=== PATIENT | male | born 1970 | race Caucasian/White ===

== ENCOUNTER 2017-11-17 11:43 | Inpatient (IN) | payer OTHER ==
[2017-11-17 12:29] VITALS: BMI 26.2
--- NOTE | 2017-11-17 13:26 | HP ---
CIWA Score - CIWA Score Nausea/Vomitin-Mild Nausea/No Vomiting Muscle Tremors: 4-Moderate,w/Arms Extend Anxiety: 4-Mod. Anxious/Guarded Agitation: 4-Moderately Restless Paroxysmal Sweats: 2 Orientation: 0-Oriented Tacttile Disturbances: 0-None Auditory Disturbances: 0-None Visual Disturbances: 0-None Headache: 1-Very Mild CIWA-Ar Total Score: 16 Admission ROS BHS - HPI Chief Complaint: ALCOHOL WITHDRAWAL SX Allergies/Adverse Reactions: Allergies Allergy/AdvReac Type Severity Reaction Status Date / Time No Known Allergies Allergy Verified 11/17/17 13:30 History of Present Illness: 47 YEARS OLD MALE WITH LONG HISTORY OF ALCOHOL NICOTINE DEPENDENCE METHADONE MAINTENANCE PROGRAM 90 MG HAS DEPRESSION ANXIETY IS ADMITTED TO DETOX Exam Limitations: No Limitations - Ebola screening Have you traveled outside of the country in the last 21 days: No Have you had contact with anyone from an Ebola affected area: No Have you been sick,other than usual withdrawal symptoms: No Do you have a fever: No - Review of Systems Constitutional: Loss of Appetite, Changes in sleep, Unintentional Wgt. Loss, Unexplained wgt Loss EENT: reports: Blurred Vision (CAN NOT FIND HIS EYE GLASSES) Respiratory: reports: No Symptoms reported Cardiac: reports: No Symptoms Reported GI: reports: Nausea, Poor Appetite, Poor Fluid Intake, Indigestion, Abdominal cramping : reports: No Symptoms Reported Musculoskeletal: reports: Joint Pain (LEGS), Muscle Pain (LEGS) Integumentary: reports: Rash (PERIORAL) Neuro: reports: Seizure (2007 UNKNOWN ORIGIN), Tremors Endocrine: reports: No Symptoms Reported Hematology: reports: No Symptoms Reported Psychiatric: reports: Judgement Intact, Orientated x3, Anxious, Depressed Other Systems: Reviewed and Negative Patient History - Patient Medical History Hx Anemia: No Hx Asthma: No Hx Chronic Obstructive Pulmonary Disease (COPD): No Hx Cancer: No Hx Cardiac Disorders: No Hx Congestive Heart Failure: No Hx Hypertension: No Hx Hypercholesterolemia: No Hx Pacemaker: No HX Cerebrovascular Accident: No Hx Seizures: Yes (2008) Hx Dementia: No Hx Diabetes: No Hx Gastrointestinal Disorders: Yes Hx Liver Disease: No Hx Genitourinary Disorders: No Hx Sexually Transmitted Disorders: No Hx Renal Disease (ESRD): No Hx Thyroid Disease: No Hx Human Immunodeficiency Virus (HIV): No Hx Hepatitis C: No Hx Depression: Yes Hx Suicide Attempt: No Hx Bipolar Disorder: No Hx Schizophrenia: No - Patient Surgical History Past Surgical History: No - PPD History Previous Implant?: Yes Documented Results: Negative w/proof Implanted On Prior [facility] Admission?: Yes Date: 10/03/17 PPD to be Administered?: No - Smoking Cessation Smoking history: Current every day smoker Have you smoked in the past 12 months: Yes Aproximately how many cigarettes per day: 6 Cigars Per Day: 0 Hx Chewing Tobacco Use: No Initiated information on smoking cessation: Yes 'Breaking Loose' booklet given: 11/17/17 - Substance & Tx. History Hx Alcohol Use: Yes Hx Substance Use: Yes Substance Use Type: Alcohol, Heroin Hx Substance Use Treatment: Yes Family Disease History - Family Disease History Family Disease History: [place]: Father (DECRASED), Mother (), Other: Father , Mother Other Family History: ADOPTED CHILD Admission Physical Exam BHS - Vital Signs Vital Signs: Vital Signs - 24 hr 11/17/17 12:27 Temperature 99.1 F Pulse Rate 69 Respiratory 17 Rate Blood Pressure 142/91 - Physical General Appearance: Yes: Appropriately Dressed, Mild Distress, Alcohol on Breath , Thin, Tremorous, Irritable, Sweating, Anxious HEENTM: Yes: Hearing grossly Normal, Normocephalic, Normal Voice Respiratory: Yes: Chest Non-Tender, Lungs Clear, Normal Breath Sounds, No Respiratory Distress, No Accessory Muscle Use Neck: Yes: Supple, Trachea in good position Breast: Yes: Breasts Symetrical, No Discharge Cardiology: Yes: Regular Rhythm, S1, S2, Bradycardia Abdominal: Yes: Normal Bowel Sounds, Non Tender, Flat Genitourinary: Yes: Within Normal Limits Back: Yes: Normal Inspection Musculoskeletal: Yes: full range of Motion, Gait Steady Extremities: Yes: Normal Inspection, Normal Range of Motion, Non-Tender, Tremors Neurological: Yes: Fully Oriented, Alert, Motor Strength 5/5, Normal Response, Depressed Affect Integumentary: Yes: Warm, Rash (PERIORBITAL) Lymphatic: Yes: Within Normal Limits - Diagnostic (1) Alcohol dependence with uncomplicated withdrawal Current Visit: Yes Status: Acute (2) Nicotine dependence Current Visit: Yes Status: Acute Qualifiers: Nicotine product type: cigarettes Substance use status: in withdrawal Qualified Code(s): F17.213 - Nicotine dependence, cigarettes, with withdrawal (3) Weight loss Current Visit: Yes Status: Acute (4) Heat rash Current Visit: Yes Status: Acute (5) Muscle spasm Current Visit: Yes Status: Acute (6) Depression (emotion) Current Visit: Yes Status: Suspected Qualifiers: Depression Type: dysthymia Qualified Code(s): F34.1 - Dysthymic disorder (7) Panic anxiety syndrome Current Visit: Yes Status: Suspected Cleared for Admission [facility] - Detox or Rehab [facility] Level of Care: Medically Managed Detox Regimen/Protocol: Librium [facility] Breath Alcohol Content Breath Alcohol Content: 0.042 Urine Drug Screen - Control Is Test Valid: Yes - Results Drug Screen Negative: No Urine Drug Screen Results: MTD-Methadone
[2017-11-17] MEDS ORDERED: NICOTINE POLACRILEX 2 MG GUM BUC PRN (13:33)
[2017-11-17] MEDS ORDERED: MAGNESIUM CITRATE 300 ML BOTTLE PO PRN (13:33)
[2017-11-17] MEDS ORDERED: LOPERAMIDE HCL 2 MG CAPSULE PO PRN (13:33)
[2017-11-17] MEDS ORDERED: hydrOXYzine PAMOATE 50 MG CAPSULE (FP) PO PRN (13:33)
[2017-11-17] MEDS ORDERED: P-EPHED 60MG/TRIPROLIDI 2.5MG TABLET PO PRN (13:33)
[2017-11-17] MEDS ORDERED: ACETAMINOPHEN 325 MG TABLET (FP) PO PRN (13:33)
[2017-11-17] MEDS ORDERED: MAG HYDROX/AL HYDROX/SIMETH 30 ML UNIT-DOSE CUP PO PRN (13:33)
[2017-11-17] MEDS ORDERED: MAGNESIUM HYDROX 2400MG/30ML ORAL SUSPENSION 30 ML CUP PO PRN (13:33)
[2017-11-17] MEDS ORDERED: guaiFENesin/D-METHORPHAN HB 10 ML UNIT-DOSE CUPS PO PRN (13:33)
[2017-11-17] MEDS ORDERED: MENTHOL/PHENOL 1 EACH UD MM PRN (13:33)
[2017-11-17] MEDS: RANITIDINE HCL 150 MG TABLET (FP) PO SCH ×2 (17:10→22:21)
[2017-11-17] MEDS: chlordiazePOXIDE HCL 25 MG CAPSULE PO SCH ×2 (17:10→22:21)
[2017-11-17] MEDS: HYDROCORTISONE 1% TOPICAL CREAM 30 GM TUBE TP SCH ×3 (17:10→22:21)
[2017-11-17] MEDS: BACLOFEN 10 MG TABLET (FP) PO SCH ×2 (17:10→22:21)
[2017-11-17] MEDS: NICOTINE 14 MG/24 HOURS TOPICAL PATCH TD SCH (17:10)
[2017-11-17 19:55] LABS: URINE APPEARANCE CLEAR; URINE BILIRUBIN NEGATIVE (<2.0 mg/dL); URINE COLOR AMBER; URINE GLUCOSE (UA) NEGATIVE (NEGATIVE); URINE KETONE NEGATIVE (NEGATIVE); URINE LEUK ESTERASE NEGATIVE (NEGATIVE); URINE NITRITE NEGATIVE (NEGATIVE); URINE PROTEIN NEGATIVE (NEGATIVE); URINE UROBILINOGEN 4.0 E.U/dl mg/dL (0.2-1.0)
[2017-11-17] MEDS ORDERED: MELATONIN 5 MG TABLETS PO PRN (22:00)
[2017-11-17] MEDS: THIAMINE HCL 100 MG TABLET (FP) PO SCH (22:21)
[2017-11-18] MEDS: BACLOFEN 10 MG TABLET (FP) PO SCH ×3 (05:59→22:10)
[2017-11-18] MEDS: chlordiazePOXIDE HCL 25 MG CAPSULE PO SCH ×4 (06:00→22:11)
[2017-11-18] MEDS ORDERED: METHADONE HCL 10 MG TABLET PO ONE (09:16)
[2017-11-18] MEDS ORDERED: METHADONE 80 MG, METHADONE 10 MG PO ONE (09:30)
[2017-11-18] MEDS ORDERED: METHADONE HCL 10 MG TABLET ONE (10:20)
[2017-11-18] MEDS ORDERED: METHADONE HCL 40 MG DISPERSABLE TABLET ONE (10:21)
[2017-11-18] MEDS: RANITIDINE HCL 150 MG TABLET (FP) PO SCH ×2 (10:29→22:11)
[2017-11-18] MEDS: PRENATAL VITAMINS W/ FOLIC ACID TABLET (FP) PO SCH (10:30)
[2017-11-18] MEDS: NICOTINE 14 MG/24 HOURS TOPICAL PATCH TD SCH (10:30)
[2017-11-18] MEDS: HYDROCORTISONE 1% TOPICAL CREAM 30 GM TUBE TP SCH ×4 (10:30→22:13)
[2017-11-18 10:32] LABS: HEMOGLOBIN 13.8 GM/dL (11.7-16.9); MCH 29.6 pg (25.7-33.7); MCHC 32.2 g/dl (32.0-35.9); MEAN PLT VOLUME 10.5 fl (7.5-11.1); PLATELET COUNT 210 K/MM3 (134-434); RBC 4.68 M/mm3 (4.00-5.60); RDW 17.3 % (11.9-15.9); WHITE BLOOD COUNT 6.4 K/mm3 (4.0-10.0)
[2017-11-18 10:42] LABS: CHLORIDE 103 mmol/L (98-107); POTASSIUM 3.6 mmol/L (3.5-5.1); SODIUM 141 mmol/L (136-145)
[2017-11-18 11:11] LABS: ALBUMIN 3.6 g/dl (3.4-5.0); ALK PHOS 279 U/L (45-117); ANION GAP 11 (8-16); BILIRUBIN,TOTAL 1.1 mg/dL (0.2-1.0); BLOOD UREA NITROGEN 9 mg/dL (7-18); CALCIUM 8.6 mg/dL (8.5-10.1); CO2 27 mmol/L (21-32); CREATININE 0.7 mg/dL (0.7-1.3); GLUCOSE,RANDOM 128 mg/dL (74-106); SGOT/AST 275 U/L (15-37); TOT PROT 7.2 g/dl (6.4-8.2)
--- NOTE | 2017-11-18 11:18 | PN ---
[facility] CIWA - CIWA Score Nausea/Vomitin-No Nausea/No Vomiting Muscle Tremors: 4-Moderate,w/Arms Extend Anxiety: 4-Mod. Anxious/Guarded Agitation: 4-Moderately Restless Paroxysmal Sweats: 3 Orientation: 0-Oriented Tacttile Disturbances: 0-None Auditory Disturbances: 0-None Visual Disturbances: 0-None Headache: 0-None Present CIWA-Ar Total Score: 15 BHS Progress Note (SOAP) Subjective: C/O TREMORS,SWEATS,RESTLESSNESS,FATIGUE,INTERMITTENT SLEEP. HX PANIC ATTACK- REQUESTS TO SEE PSYCH TODAY. Objective: 11/18/17 11:18 Vital Signs 11/18/17 11/18/17 06:15 09:56 Temperature 97.4 F L 98.6 F Pulse Rate 62 69 Respiratory 18 20 Rate Blood Pressure 128/78 123/76 Laboratory Tests 11/17/17 11/18/17 11/18/17 17:13 06:00 06:00 WBC 6.4 RBC 4.68 Hgb 13.8 Hct 43.0 MCV 92.0 MCH 29.6 MCHC 32.2 RDW 17.3 H Plt Count 210 MPV 10.5 Sodium 141 Potassium 3.6 Chloride 103 Urine Color Kristal Urine Appearance Clear Urine pH 5.0 Ur Specific [place] 1.018 Urine Protein Negative Urine Glucose (UA) Negative Urine Ketones Negative Urine Blood Negative Urine Nitrite Negative Urine Bilirubin Negative Urine Urobilinogen 4.0 e.u/dl Ur Leukocyte Esterase Negative Assessment: 11/18/17 11:18 WITHDRAWAL SX Plan: CONTINUE DETOX INCREASE PO FLUIDS FOLLOW UP WITH PSYCH CONSULT TODAY
[2017-11-18 11:19] LABS: SGPT/ALT 547 U/L (12-78)
--- NOTE | 2017-11-18 13:16 | EKG ---
Test Reason : Blood Pressure : / mmHG Vent. Rate : 080 BPM Atrial Rate : 080 BPM P-R Int : 118 ms QRS Dur : 104 ms QT Int : 418 ms P-R-T Axes : -13 061 053 degrees QTc Int : 482 ms NORMAL SINUS RHYTHM MINIMAL VOLTAGE CRITERIA FOR LVH, MAY BE NORMAL VARIANT PROLONGED QT ABNORMAL ECG NO PREVIOUS ECGS AVAILABLE Confirmed by MD MARQUES, ANTHONY ([id number]) on 11/18/2017 1:16:41 PM Referred By: Confirmed By:ANTHONY MOHAN MD
--- NOTE | 2017-11-18 17:22 | CONSULT ---
[facility] Psychiatric Consult - Data Date of interview: 11/18/17 Admission source: [facility] Identifying data: First admission to [facility] for this 47 y/o male seeking detox treatment on for opioid and alcohol dependence.Patient is ,a father of one,homeless,unemployed and supported by relatives. Substance Abuse History: Confirmed by relatives.Smoking history: Current every day smoker. Have you smoked in the past 12 months: Yes. Aproximately how many cigarettes per day: 6. Cigars Per Day: 0. Hx Chewing Tobacco Use: No. Initiated information on smoking cessation: Yes. 'Breaking Loose' booklet given : 11/17/17. - Substance & Tx. History. Hx Alcohol Use: Yes. Hx Substance Use : Yes. Substance Use Type: Alcohol, Heroin. Hx Substance Use Treatment: Yes Medical History: GERD and a history of withdrawal-related seizures. Psychiatric History: No reported history of psychiatric hospitalizations.Patient declares that he was diagnosed in the past with MDD and managed successfully with wellbutrin.Ejected from [facility] in August 2017 after 15 months of treatment (violation of unit regulations as per self-report) .Currently on methadone maintenance (90 mg/day) at the [facility] program in [facility].Patient denies history of suicide attempts. Physical/Sexual Abuse/Trauma History: Patient denies. Additional Comment: Urine Drug Screen Results: MTD-Methadone.Noted. Mental Status Exam - Mental Status Exam Alert and Oriented to: Time, Place, Person Cognitive Function: Good Patient Appearance: Well Groomed Mood: Nervous, Anxious Affect: Mood Congruent Patient Behavior: Appropriate, Cooperative Speech Pattern: Clear, Appropriate Voice Loudness: Normal Thought Process: Intact, Goal Oriented Thought Disorder: Not Present Hallucinations: Denies Suicidal Ideation: Denies Homicidal Ideation: Denies Insight/Judgement: Fair Sleep: Poorly, Difficulty falling asleep Appetite: Good Muscle strength/Tone: Normal Gait/Station: Normal Psychiatric Findings - Problem List ([place] 1, 2,3) (1) Opioid dependence on agonist therapy Current Visit: Yes Status: Acute (2) Alcohol dependence with uncomplicated withdrawal Current Visit: Yes Status: Acute (3) Nicotine dependence Current Visit: Yes Status: Acute Qualifiers: Nicotine product type: cigarettes Substance use status: in withdrawal Qualified Code(s): F17.213 - Nicotine dependence, cigarettes, with withdrawal (4) Substance induced mood disorder Current Visit: Yes Status: Acute (5) Mood disorder Current Visit: Yes Status: Chronic (6) Non compliance w medication regimen Current Visit: Yes Status: Acute (7) Insomnia Current Visit: Yes Status: Acute - Initial Treatment Plan Initial Treatment Plan: Psychoeducation.Sleep hygiene discussed.Patient declines hypnotic medications but favors the inclusion of wellbutrin in the medication regimen." I did so well on that medication when I was at [facility] ." Wellbutrin XL 150 mg po daily.Patient is made aware of the risk of seizures.Consent (verbal) given.Observation.
[2017-11-18] MEDS: THIAMINE HCL 100 MG TABLET (FP) PO SCH (22:12)
[2017-11-19] MEDS ORDERED: METHADONE HCL 10 MG TABLET ONE (05:09)
[2017-11-19] MEDS ORDERED: METHADONE HCL 40 MG DISPERSABLE TABLET ONE (05:10)
[2017-11-19] MEDS: chlordiazePOXIDE HCL 25 MG CAPSULE PO SCH ×2 (05:55→10:24)
[2017-11-19] MEDS ORDERED: METHADONE HCL 10 MG TABLET PO SCH (06:00)
[2017-11-19] MEDS: METHADONE 80 MG, METHADONE 10 MG PO SCH (06:14)
[2017-11-19] MEDS: BACLOFEN 10 MG TABLET (FP) PO SCH ×3 (06:22→22:25)
[2017-11-19] MEDS: chlordiazePOXIDE HCL 25 MG CAPSULE PO PRN ×2 (06:29→19:38)
[2017-11-19] MEDS: HYDROCORTISONE 1% TOPICAL CREAM 30 GM TUBE TP SCH ×4 (10:24→23:48)
[2017-11-19] MEDS: RANITIDINE HCL 150 MG TABLET (FP) PO SCH ×2 (10:24→22:25)
[2017-11-19] MEDS: PRENATAL VITAMINS W/ FOLIC ACID TABLET (FP) PO SCH (10:24)
[2017-11-19] MEDS: NICOTINE 14 MG/24 HOURS TOPICAL PATCH TD SCH (10:25)
[2017-11-19] MEDS: chlordiazePOXIDE 5 MG CAPSULE PO SCH ×2 (17:30→22:26)
--- NOTE | 2017-11-19 18:32 | PN ---
S CIWA - CIWA Score Nausea/Vomitin-No Nausea/No Vomiting Muscle Tremors: 3 Anxiety: 4-Mod. Anxious/Guarded Agitation: 3 Paroxysmal Sweats: 2 Orientation: 2-Disoriented Date<2 days Tacttile Disturbances: 0-None Auditory Disturbances: 0-None Visual Disturbances: 0-None Headache: 3-Moderate CIWA-Ar Total Score: 17 BHS Progress Note (SOAP) Subjective: Interrupted sleep, Body Aches, H/A, Sweating, Tremors, Nausea, Stomach Cramping. Objective: PATIENT A & O X 2 (UNCERTAIN ABOUT CURRENT DAY / DATE). PATIENT OBSERVED AMBULATING ON UNIT. NO ACUTE DISTRESS. 11/19/17 18:30 Vital Signs Temperature 98.3 F 11/19/17 13:25 Pulse Rate 81 11/19/17 13:25 Respiratory Rate 18 11/19/17 13:25 Blood Pressure 138/76 11/19/17 13:25 O2 Sat by Pulse Oximetry (%) Laboratory Tests 11/17/17 11/17/17 11/18/17 06:00 17:13 06:00 WBC 6.4 RBC 4.68 Hgb 13.8 Hct 43.0 MCV 92.0 MCH 29.6 MCHC 32.2 RDW 17.3 H Plt Count 210 MPV 10.5 Sodium Potassium Chloride Carbon Dioxide Anion Gap BUN Creatinine Creat Clearance w eGFR Random Glucose Calcium Total Bilirubin AST ALT Alkaline Phosphatase Total Protein Albumin TSH 0.75 Urine Color Kristal Urine Appearance Clear Urine pH 5.0 Ur Specific [place] 1.018 Urine Protein Negative Urine Glucose (UA) Negative Urine Ketones Negative Urine Blood Negative Urine Nitrite Negative Urine Bilirubin Negative Urine Urobilinogen 4.0 e.u/dl Ur Leukocyte Esterase Negative RPR Titer 11/18/17 11/18/17 06:00 06:00 WBC RBC Hgb Hct MCV MCH MCHC RDW Plt Count MPV Sodium 141 Potassium 3.6 Chloride 103 Carbon Dioxide 27 Anion Gap 11 BUN 9 Creatinine 0.7 Creat Clearance w eGFR > 60 Random Glucose 128 H Calcium 8.6 Total Bilirubin 1.1 H AST 275 H ALT 547 H Alkaline Phosphatase 279 H Total Protein 7.2 Albumin 3.6 TSH Urine Color Urine Appearance Urine pH Ur Specific [place] Urine Protein Urine Glucose (UA) Urine Ketones Urine Blood Urine Nitrite Urine Bilirubin Urine Urobilinogen Ur Leukocyte Esterase RPR Titer Nonreactive LABS NOTED. Assessment: 11/19/17 18:31 WITHDRAWAL SYMPTOMS. Plan: CONTINUE DETOX. HFP TOMORROW AM FOR ABNORMAL ADMISSION HEPATIC LAB VALUES. INCREASE DAILY PO FLUID INTAKE.
[2017-11-19] MEDS: THIAMINE HCL 100 MG TABLET (FP) PO SCH (22:25)
[2017-11-20] MEDS: chlordiazePOXIDE 5 MG CAPSULE PO SCH ×2 (04:30→10:49)
[2017-11-20] MEDS ORDERED: METHADONE HCL 40 MG DISPERSABLE TABLET ONE (05:15)
[2017-11-20] MEDS ORDERED: METHADONE HCL 10 MG TABLET ONE (05:15)
[2017-11-20] MEDS: BACLOFEN 10 MG TABLET (FP) PO SCH ×3 (05:46→22:33)
[2017-11-20] MEDS: METHADONE 80 MG, METHADONE 10 MG PO SCH (06:04)
[2017-11-20 10:43] LABS: ALBUMIN 3.5 g/dl (3.4-5.0)
--- NOTE | 2017-11-20 10:45 | PN ---
Psychiatric Progress Note Vital Signs: Vital Signs Period Temp Pulse Resp BP Sys/Diaz Pulse Ox Last 24 Hr 96.9 F-98.3 F 74-85 18-18 118-153/67-82 Date of Session: 11/20/17 Chief Complaint:: "I'm anxious." HPI: Patient admitted to for alcohol dependence. ROS: GERD and a history of withdrawal-related seizures Current Medications: Active Medications Generic Name Dose Route Start Last Admin Trade Name Freq PRN Reason Stop Dose Admin Acetaminophen 650 mg 11/17/17 13:33 11/20/17 04:30 Tylenol - PO 650 mg Q4H PRN Administration FEVER Al Hydroxide/Mg Hydroxide 30 ml 11/17/17 13:33 Mylanta Oral Suspension - PO Q6H PRN DYSPEPSIA Baclofen 10 mg 11/17/17 14:30 11/20/17 05:46 Lioresal - PO 10 mg TID EDMUND Administration Bupropion HCl 150 mg 11/19/17 10:00 11/19/17 10:24 Wellbutrin Xl - PO 150 mg DAILY EDMUND Administration Chlordiazepoxide HCl 15 mg 11/19/17 17:00 11/20/17 04:30 Librium - PO 11/20/17 11:01 15 mg [id number] EDMUND Administration Chlordiazepoxide HCl 25 mg 11/17/17 13:33 11/19/17 19:38 Librium - PO 11/20/17 13:32 25 mg Q4H PRN Administration WITHDRAWAL(CONT SUBST) Chlordiazepoxide HCl 10 mg 11/20/17 17:00 Librium - PO 11/21/17 11:01 [id number] EDMUND Eucalyptus/Menthol/Phenol/Sorbitol 1 each 11/17/17 13:33 Cepastat Lozenge - MM Q4H PRN SORE THROAT Guaifenesin 10 ml 11/17/17 13:33 Robitussin Dm - PO Q6H PRN COUGH Hydrocortisone 1 applic 11/17/17 14:30 11/19/17 23:48 Hytone 1% Cream - TP Not Given QID EDMUND Hydroxyzine Pamoate 50 mg 11/17/17 13:33 Vistaril - PO Q4H PRN AGITATION Loperamide HCl 4 mg 11/17/17 13:33 Imodium - PO Q6H PRN DIARRHEA Magnesium Citrate 300 ml 11/17/17 13:33 Citroma - PO Q48H PRN CONSTIPATION Magnesium Hydroxide 30 ml 11/17/17 13:33 Milk Of Magnesia - PO DAILY PRN CONSTIPATION Melatonin 5 mg 11/17/17 22:00 Melatonin PO HS PRN INSOMNIA Methadone HCl 80 mg/ Methadone 90 mg 11/19/17 06:00 11/20/17 06:04 HCl 10 mg PO 11/25/17 05:59 90 mg DAILY@0600 EDMUND Administration Nicotine 14 mg 11/17/17 14:30 11/19/17 10:25 Nicoderm Patch - TD 14 mg DAILY EDMUND Administration Nicotine Polacrilex 2 mg 11/17/17 13:33 11/19/17 08:44 Nicorette Gum - BUC 2 mg Q2H PRN Administration NICOTINE REPLACEMENT RX Multivit/Folic Acid/Iron 1 tab 11/18/17 10:00 11/19/17 10:24 Vitamins ([facility]) - PO 1 tab DAILY EDMUND Administration Pseudoephedrine/Triprolidine 1 combo 11/17/17 13:33 Actifed - PO TID PRN NASAL CONGESTION Ranitidine HCl 150 mg 11/17/17 14:30 11/19/17 22:25 Zantac - PO 150 mg BID EDMUND Administration Thiamine HCl 100 mg 11/17/17 22:00 11/19/17 22:25 Vitamin B1 - PO 100 mg HS EDMUND Administration Medication(s) Change(s): No. Current Side Effect: No Lab tests ordered: No Lab tests reviewed: Yes Provider note:: Corrugator met with patient requesting to speak to psychiatry. Pt. reports feeling anxious concerning his discharge plan. Chart reviewed. Dr. Bell note read and appreciated. Pt. diagnosed in the past with MDD and managed successfully with wellbutrin. Pt. reports being here for alcohol dependence although has a history of opiate dependence. Pt. is currently concerned about his discharge plan. Pt. was informed that the plan is for him to attend rehab at the [facility] but at the moment, his acceptance is pending. Pt. offered positive reassurance. Pt. made aware that vistaril 50mg for anxiety is ordered and to accept medication if his anxiety increases. Pt. satisified and receptive to feedback. Total face to face time:: 15 Mental Status Exam - Mental Status Exam Alert and Oriented to: Time, Place, Person Cognitive Function: Good Patient Appearance: Well Groomed Mood: Anxious Affect: Mood Congruent Patient Behavior: Appropriate, Cooperative Speech Pattern: Clear, Appropriate Voice Loudness: Normal Thought Process: Intact, Goal Oriented Thought Disorder: Not Present Hallucinations: Denies Suicidal Ideation: Denies Homicidal Ideation: Denies Insight/Judgement: Fair Sleep: Fair Appetite: Good Muscle strength/Tone: Normal Gait/Station: Normal Psychiatric Treatment Plan - Problem List (1) Alcohol dependence with uncomplicated withdrawal Current Visit: Yes (2) Insomnia Current Visit: Yes (3) Opioid dependence on agonist therapy Current Visit: Yes (4) Nicotine dependence Current Visit: Yes Qualifiers: Nicotine product type: cigarettes Substance use status: in withdrawal Qualified Code(s): F17.213 - Nicotine dependence, cigarettes, with withdrawal (5) Non compliance w medication regimen Current Visit: Yes (6) Substance induced mood disorder Current Visit: Yes (7) Mood disorder Current Visit: Yes
[2017-11-20 10:47] LABS: BILIRUBIN,DIRECT 0.4 mg/dL (0.0-0.2); BILIRUBIN,TOTAL 0.5 mg/dL (0.2-1.0); TOT PROT 7.3 g/dl (6.4-8.2)
[2017-11-20] MEDS: RANITIDINE HCL 150 MG TABLET (FP) PO SCH ×2 (10:49→22:33)
[2017-11-20] MEDS: PRENATAL VITAMINS W/ FOLIC ACID TABLET (FP) PO SCH (10:49)
[2017-11-20] MEDS: NICOTINE 14 MG/24 HOURS TOPICAL PATCH TD SCH (10:49)
[2017-11-20] MEDS: HYDROCORTISONE 1% TOPICAL CREAM 30 GM TUBE TP SCH ×4 (10:49→22:33)
--- NOTE | 2017-11-20 14:23 | PN ---
S Progress Note (SOAP) Subjective: C/O SLIGHT TREMORS, ANXIETY AND PANICS BUT REPORTS HE IS DOING MUCH BETTER. PT MET WITH COUNSELOR RE;AFTERCARE PLANS. PT TO MEET WITH PSYCH CONSULT FOR RE- EVALUATION OF HIS SX Objective: 11/20/17 14:21 Vital Signs 11/20/17 11/20/17 09:19 13:45 Temperature 97.5 F L 97.0 F L Pulse Rate 85 83 Respiratory 18 18 Rate Blood Pressure 124/74 119/73 Laboratory Tests 11/17/17 11/17/17 11/18/17 06:00 17:13 06:00 WBC 6.4 RBC 4.68 Hgb 13.8 Hct 43.0 MCV 92.0 MCH 29.6 MCHC 32.2 RDW 17.3 H Plt Count 210 MPV 10.5 Sodium Potassium Chloride Carbon Dioxide Anion Gap BUN Creatinine Creat Clearance w eGFR Random Glucose Calcium Total Bilirubin Direct Bilirubin AST ALT Alkaline Phosphatase Total Protein Albumin TSH 0.75 Urine Color Kristal Urine Appearance Clear Urine pH 5.0 Ur Specific [place] 1.018 Urine Protein Negative Urine Glucose (UA) Negative Urine Ketones Negative Urine Blood Negative Urine Nitrite Negative Urine Bilirubin Negative Urine Urobilinogen 4.0 e.u/dl Ur Leukocyte Esterase Negative RPR Titer 11/18/17 11/18/17 11/20/17 06:00 06:00 07:40 WBC RBC Hgb Hct MCV MCH MCHC RDW Plt Count MPV Sodium 141 Potassium 3.6 Chloride 103 Carbon Dioxide 27 Anion Gap 11 BUN 9 Creatinine 0.7 Creat Clearance w eGFR > 60 Random Glucose 128 H Calcium 8.6 Total Bilirubin 1.1 H 0.5 Direct Bilirubin 0.4 H AST 275 H 51 H D ALT 547 H 239 H D Alkaline Phosphatase 279 H 197 H D Total Protein 7.2 7.3 Albumin 3.6 3.5 TSH Urine Color Urine Appearance Urine pH Ur Specific [place] Urine Protein Urine Glucose (UA) Urine Ketones Urine Blood Urine Nitrite Urine Bilirubin Urine Urobilinogen Ur Leukocyte Esterase RPR Titer Nonreactive LABS NOTED. LIVER ENZYMES SLIGHTLY DOWN ASYMPTOMATIC Assessment: 11/20/17 14:23 WITHDRAWAL SX Plan: CONTINUE DETOX PT WILL FOLLOW UP WITH PMD WITH COPY OF LAB RESULT FOR MEDICAL MANAGEMENT ON DISCHARGE..
[2017-11-20] MEDS: chlordiazePOXIDE HCL 10 MG CAPSULE PO SCH ×2 (17:19→22:33)
[2017-11-20] MEDS: THIAMINE HCL 100 MG TABLET (FP) PO SCH (22:33)
[2017-11-21] MEDS ORDERED: METHADONE HCL 10 MG TABLET ONE (04:01)
[2017-11-21] MEDS ORDERED: METHADONE HCL 40 MG DISPERSABLE TABLET ONE (04:03)
[2017-11-21] MEDS: BACLOFEN 10 MG TABLET (FP) PO SCH (05:48)
[2017-11-21] MEDS: METHADONE 80 MG, METHADONE 10 MG PO SCH (05:48)
[2017-11-21] MEDS: chlordiazePOXIDE HCL 10 MG CAPSULE PO SCH ×2 (05:48→10:57)
[2017-11-21] MEDS: PRENATAL VITAMINS W/ FOLIC ACID TABLET (FP) PO SCH (10:22)
[2017-11-21] MEDS: HYDROCORTISONE 1% TOPICAL CREAM 30 GM TUBE TP SCH (10:22)
[2017-11-21] MEDS: RANITIDINE HCL 150 MG TABLET (FP) PO SCH (10:22)
[2017-11-21] MEDS: NICOTINE 14 MG/24 HOURS TOPICAL PATCH TD SCH (10:25)
[2017-11-21 11:42] LABS: ALBUMIN 3.4 g/dl (3.4-5.0); BILIRUBIN,DIRECT 0.2 mg/dL (0.0-0.2); BILIRUBIN,TOTAL 0.5 mg/dL (0.2-1.0); TOT PROT 6.7 g/dl (6.4-8.2)
--- NOTE | 2017-11-21 12:24 | PN ---
[facility] Progress Note (SOAP) Subjective: DETOX COMPLETED. ALERT O X 3. PT EAGER TO GO TO REHAB AFTERCARE. Objective: 11/21/17 12:23 Vital Signs 11/21/17 11/21/17 06:43 09:17 Temperature 96.3 F L 98.5 F Pulse Rate 76 86 Respiratory 18 18 Rate Blood Pressure 111/69 124/77 Laboratory Tests 11/17/17 11/17/17 11/18/17 06:00 17:13 06:00 WBC 6.4 RBC 4.68 Hgb 13.8 Hct 43.0 MCV 92.0 MCH 29.6 MCHC 32.2 RDW 17.3 H Plt Count 210 MPV 10.5 Sodium Potassium Chloride Carbon Dioxide Anion Gap BUN Creatinine Creat Clearance w eGFR Random Glucose Calcium Total Bilirubin Direct Bilirubin AST ALT Alkaline Phosphatase Total Protein Albumin TSH 0.75 Urine Color Kristal Urine Appearance Clear Urine pH 5.0 Ur Specific [place] 1.018 Urine Protein Negative Urine Glucose (UA) Negative Urine Ketones Negative Urine Blood Negative Urine Nitrite Negative Urine Bilirubin Negative Urine Urobilinogen 4.0 e.u/dl Ur Leukocyte Esterase Negative RPR Titer 11/18/17 11/18/17 11/20/17 06:00 06:00 07:40 WBC RBC Hgb Hct MCV MCH MCHC RDW Plt Count MPV Sodium 141 Potassium 3.6 Chloride 103 Carbon Dioxide 27 Anion Gap 11 BUN 9 Creatinine 0.7 Creat Clearance w eGFR > 60 Random Glucose 128 H Calcium 8.6 Total Bilirubin 1.1 H 0.5 Direct Bilirubin 0.4 H AST 275 H 51 H D ALT 547 H 239 H D Alkaline Phosphatase 279 H 197 H D Total Protein 7.2 7.3 Albumin 3.6 3.5 TSH Urine Color Urine Appearance Urine pH Ur Specific [place] Urine Protein Urine Glucose (UA) Urine Ketones Urine Blood Urine Nitrite Urine Bilirubin Urine Urobilinogen Ur Leukocyte Esterase RPR Titer Nonreactive 11/21/17 07:40 WBC RBC Hgb Hct MCV MCH MCHC RDW Plt Count MPV Sodium Potassium Chloride Carbon Dioxide Anion Gap BUN Creatinine Creat Clearance w eGFR Random Glucose Calcium Total Bilirubin 0.5 Direct Bilirubin 0.2 D AST 33 D ALT 164 H D Alkaline Phosphatase 168 H D Total Protein 6.7 Albumin 3.4 TSH Urine Color Urine Appearance Urine pH Ur Specific [place] Urine Protein Urine Glucose (UA) Urine Ketones Urine Blood Urine Nitrite Urine Bilirubin Urine Urobilinogen Ur Leukocyte Esterase RPR Titer LIVER ENZYMES MUCH IMPROVED Assessment: 11/21/17 12:23 MEDICALLY STABLE Plan: D/C PT TODAY FOLLOW UP WITH AFTERCARE PLANNED.
--- NOTE | 2017-11-21 12:27 | DS ---
[facility] Detox Discharge Summary Admission Date: 11/17/17 Discharge Date: 11/21/17 - History Present History: Alcohol Dependence Additional Comments: DETOX COMPLETED. ALERT O X 3. NAD.PT REORTS HE HAS NO PMD BUT USES [facility] ER NEEDED. Pertinent Past History: PLEASE SEE DX BELOW - Physical Exam Results Vital Signs: Vital Signs Temperature 98.5 F 11/21/17 09:17 Pulse Rate 86 11/21/17 09:17 Respiratory Rate 18 11/21/17 09:17 Blood Pressure 124/77 11/21/17 09:17 O2 Sat by Pulse Oximetry (%) Pertinent Admission Physical Exam Findings: WITHDRAWAL SX Laboratory Tests 11/17/17 11/17/17 11/18/17 06:00 17:13 06:00 WBC 6.4 RBC 4.68 Hgb 13.8 Hct 43.0 MCV 92.0 MCH 29.6 MCHC 32.2 RDW 17.3 H Plt Count 210 MPV 10.5 Sodium Potassium Chloride Carbon Dioxide Anion Gap BUN Creatinine Creat Clearance w eGFR Random Glucose Calcium Total Bilirubin Direct Bilirubin AST ALT Alkaline Phosphatase Total Protein Albumin TSH 0.75 Urine Color Kristal Urine Appearance Clear Urine pH 5.0 Ur Specific [place] 1.018 Urine Protein Negative Urine Glucose (UA) Negative Urine Ketones Negative Urine Blood Negative Urine Nitrite Negative Urine Bilirubin Negative Urine Urobilinogen 4.0 e.u/dl Ur Leukocyte Esterase Negative RPR Titer 11/18/17 11/18/17 11/20/17 06:00 06:00 07:40 WBC RBC Hgb Hct MCV MCH MCHC RDW Plt Count MPV Sodium 141 Potassium 3.6 Chloride 103 Carbon Dioxide 27 Anion Gap 11 BUN 9 Creatinine 0.7 Creat Clearance w eGFR > 60 Random Glucose 128 H Calcium 8.6 Total Bilirubin 1.1 H 0.5 Direct Bilirubin 0.4 H AST 275 H 51 H D ALT 547 H 239 H D Alkaline Phosphatase 279 H 197 H D Total Protein 7.2 7.3 Albumin 3.6 3.5 TSH Urine Color Urine Appearance Urine pH Ur Specific [place] Urine Protein Urine Glucose (UA) Urine Ketones Urine Blood Urine Nitrite Urine Bilirubin Urine Urobilinogen Ur Leukocyte Esterase RPR Titer Nonreactive 11/21/17 07:40 WBC RBC Hgb Hct MCV MCH MCHC RDW Plt Count MPV Sodium Potassium Chloride Carbon Dioxide Anion Gap BUN Creatinine Creat Clearance w eGFR Random Glucose Calcium Total Bilirubin 0.5 Direct Bilirubin 0.2 D AST 33 D ALT 164 H D Alkaline Phosphatase 168 H D Total Protein 6.7 Albumin 3.4 TSH Urine Color Urine Appearance Urine pH Ur Specific [place] Urine Protein Urine Glucose (UA) Urine Ketones Urine Blood Urine Nitrite Urine Bilirubin Urine Urobilinogen Ur Leukocyte Esterase RPR Titer LIVER ENZYMES MUCH IMPROVED. - Treatment Hospital Course: Detox Protocol Followed, Detoxed Safely, Responded well, Discharged Condition Good, Rehab Referral Accepted Patient has Accepted a Rehab Referral to: [facility] - Medication Discharge Medications: Ambulatory Orders Methadone [Dolophine -] 90 mg PO DAILY 11/17/17 - Diagnosis (1) Alcohol dependence with uncomplicated withdrawal Current Visit: Yes Status: Acute (2) Nicotine dependence Current Visit: Yes Status: Acute Qualifiers: Nicotine product type: cigarettes Substance use status: in withdrawal Qualified Code(s): F17.213 - Nicotine dependence, cigarettes, with withdrawal (3) Weight loss Current Visit: Yes Status: Acute (4) Panic anxiety syndrome Current Visit: Yes Status: Suspected (5) Heat rash Current Visit: Yes Status: Acute (6) GERD (gastroesophageal reflux disease) Current Visit: Yes Status: Acute Qualifiers: Esophagitis presence: esophagitis presence not specified Qualified Code(s) : K21.9 - Gastro-esophageal reflux disease without esophagitis (7) Elevated liver enzymes Current Visit: Yes Status: Acute - AMA Did Patient Leave Against Medical Advice: No
[2017-11-21 12:53] VITALS: BP 128/77; PULSE 89; TEMP 98.1
== END 2017-11-21 12:53 | disposition other institution (70) | DRG 775 ==
LOC: YASAS 11:43 → Y3N 14:14
PROVIDERS: ADMIT Surgery; ATTEND Surgery
PROC: HZ2ZZZZ Detoxification Services for Substance Abuse Treatment (ICD-10-PCS; principal; 2017-11-17)
DX: F10.230 Alcohol dependence with withdrawal, uncomplicated (principal); F17.210 Nicotine dependence, cigarettes, uncomplicated; F19.24 Other psychoactive substance dependence with psychoactive substance-induced mood disorder; F41.0 Panic disorder [episodic paroxysmal anxiety]; F34.1 Dysthymic disorder; F31.9 Bipolar disorder, unspecified; G47.00 Insomnia, unspecified; L74.8 Other eccrine sweat disorders; R74.8 Abnormal levels of other serum enzymes; R63.4 Abnormal weight loss; Z68.26 Body mass index [BMI] 26.0-26.9, adult; M62.838 Other muscle spasm; Z91.14 Patient's other noncompliance with medication regimen; Z59.0 Homelessness
CPT/HCPCS: 36415; 80053; 80076; 81003; 84443; 85027; 86593; 93005; 93010; J0475

== ENCOUNTER 2017-11-21 12:58 | Inpatient (IN) | payer OTHER ==
[2017-11-21] MEDS ORDERED: P-EPHED 60MG/TRIPROLIDI 2.5MG TABLET PO PRN (13:29)
[2017-11-21] MEDS ORDERED: MAGNESIUM CITRATE 300 ML BOTTLE PO PRN (13:29)
[2017-11-21] MEDS ORDERED: MENTHOL/PHENOL 1 EACH UD MM PRN (13:29)
[2017-11-21] MEDS ORDERED: guaiFENesin/D-METHORPHAN HB 10 ML UNIT-DOSE CUPS PO PRN (13:29)
[2017-11-21] MEDS ORDERED: MAGNESIUM HYDROX 2400MG/30ML ORAL SUSPENSION 30 ML CUP PO PRN (13:29)
[2017-11-21] MEDS ORDERED: IBUPROFEN 400 MG TABLET (FP) PO PRN (13:29)
[2017-11-21] MEDS ORDERED: LOPERAMIDE HCL 2 MG CAPSULE PO PRN (13:29)
--- NOTE | 2017-11-21 13:38 | HP ---
[facility] Rehab Assess/Revision - Admission History Admitted to Rehab from: [facility] Date of Admission to Rehab: 11/21/17 - Vital signs Vital Signs: Vital Signs Period Temp Pulse Resp BP Sys/Diaz Pulse Ox Last 24 Hr 98.1 F 83 18 117/68 - Findings Detox History & Physical reviewed: Yes Concur with findings: Yes Comments/Additional Findings: ADMIT TO REHAB FOR AFTERCARE Inpatient Rehab Admission - Initial Determination Are CD services needed?: Yes Free of communicable disease: Yes Not in need of hospitalization: Yes - Rehab Admission Criteria Patient is meeting Inpatient Rehab admission criteria:: Yes
[2017-11-21] MEDS: NICOTINE 14 MG/24 HOURS TOPICAL PATCH TD SCH (14:16)
--- NOTE | 2017-11-21 14:18 | HP ---
Psychiatrist Admission - Data Date of interview: 11/21/17 Admission source: [facility] Identifying data: Patient is a 47 year old male, , father of one, unemployed (denies receiving financial assistance), and currently homeless. This is patient's first admission to rehab at [facility]. Medical History: GERD and a history of withdrawal-related seizures. Psychiatric History: Patient denies h/o psychiatric hospitalizations. States he was diagnosed with MDD in 2005 while in a rehab in [place], [place]. Pt. was then started on a trial of wellbutrin followed by lexapro. Patient remained on wellbutrin and continues to accept medication today.Pt. reports [employer] in 2016 but due to length of commute patient discontined his outpatient psychiatric care. Pt. reports receiving refills from his PCP, detox/rehab facilities. Pt. was recently in the [facility] program [facility]" but was ejected from program for violation of unit regulation. Patient is currently on methadone maintenance (90 mg/day) at the [facility] program in [facility]. Pt. denies h/o suicide attempt. Physical/Sexual Abuse/Trauma History: Denies. Vital Signs: Vital Signs - 24 hr 11/21/17 13:05 Temperature 98.1 F Pulse Rate 83 Respiratory 18 Rate Blood Pressure 117/68 Allergies/Adverse Reactions: Allergies Allergy/AdvReac Type Severity Reaction Status Date / Time No Known Allergies Allergy Verified 11/17/17 13:30 Date of last physical exam: 11/17/17 Concur with the findings of this exam: Yes - Substance Abuse/Tx History Hx Alcohol Use: Yes (5-6 pints daily) Hx Substance Use: No Substance Use Type: None Hx Substance Use Treatment: Yes Mental Status Exam - Mental Status Exam Alert and Oriented to: Time, Place, Person Cognitive Function: Good Patient Appearance: Well Groomed Mood: Hopeful Affect: Mood Congruent Patient Behavior: Appropriate, Cooperative Speech Pattern: Clear, Appropriate Voice Loudness: Normal Thought Process: Intact, Goal Oriented Thought Disorder: Not Present Hallucinations: Denies Suicidal Ideation: Denies Homicidal Ideation: Denies Insight/Judgement: Poor Sleep: Poorly Appetite: Fair Muscle strength/Tone: Normal Gait/Station: Normal Psychiatric Findings - Problem List ([place] 1, 2,3) (1) Alcohol dependence Current Visit: Yes Status: Acute (2) Opioid dependence on agonist therapy Current Visit: Yes Status: Chronic (3) Mood disorder Current Visit: Yes Status: Chronic (4) Nicotine dependence Current Visit: Yes Status: Chronic Qualifiers: Nicotine product type: cigarettes Substance use status: in withdrawal Qualified Code(s): F17.213 - Nicotine dependence, cigarettes, with withdrawal (5) Substance induced mood disorder Current Visit: Yes Status: Acute (6) Insomnia Current Visit: Yes Status: Acute - Initial Treatment Plan Initial Treatment Plan: Psychoeducation provided. Rehab in progress. Wellbutrin 150mg XL ordered. Benefits and side effects discussed. Verbal consent given.
[2017-11-21] MEDS: THIAMINE HCL 100 MG TABLET (FP) PO SCH (21:09)
[2017-11-22] MEDS ORDERED: METHADONE HCL 40 MG DISPERSABLE TABLET ONE (05:32)
[2017-11-22] MEDS ORDERED: METHADONE HCL 10 MG TABLET ONE (05:32)
[2017-11-22] MEDS ORDERED: METHADONE HCL 10 MG TABLET PO SCH (06:00)
[2017-11-22] MEDS: METHADONE 80 MG, METHADONE 10 MG PO SCH (06:15)
[2017-11-22] MEDS: NICOTINE 14 MG/24 HOURS TOPICAL PATCH TD SCH (09:58)
[2017-11-22] MEDS: PRENATAL VITAMINS W/ FOLIC ACID TABLET (FP) PO SCH (09:59)
[2017-11-22] MEDS: THIAMINE HCL 100 MG TABLET (FP) PO SCH (21:06)
[2017-11-23] MEDS ORDERED: METHADONE HCL 10 MG TABLET ONE (04:24)
[2017-11-23] MEDS ORDERED: METHADONE HCL 40 MG DISPERSABLE TABLET ONE (04:24)
[2017-11-23] MEDS: METHADONE 80 MG, METHADONE 10 MG PO SCH (06:02)
[2017-11-23] MEDS: hydrOXYzine PAMOATE 50 MG CAPSULE (FP) PO PRN (06:05)
[2017-11-23] MEDS: PRENATAL VITAMINS W/ FOLIC ACID TABLET (FP) PO SCH (10:05)
[2017-11-23] MEDS: NICOTINE 14 MG/24 HOURS TOPICAL PATCH TD SCH (10:05)
[2017-11-23] MEDS: THIAMINE HCL 100 MG TABLET (FP) PO SCH (21:12)
[2017-11-23] MEDS: MAG HYDROX/AL HYDROX/SIMETH 30 ML UNIT-DOSE CUP PO PRN (21:13)
[2017-11-24] MEDS ORDERED: METHADONE HCL 10 MG TABLET ONE (04:48)
[2017-11-24] MEDS ORDERED: METHADONE HCL 40 MG DISPERSABLE TABLET ONE (04:48)
[2017-11-24] MEDS: METHADONE 80 MG, METHADONE 10 MG PO SCH (06:38)
[2017-11-24] MEDS: hydrOXYzine PAMOATE 50 MG CAPSULE (FP) PO PRN (06:39)
[2017-11-24] MEDS: PRENATAL VITAMINS W/ FOLIC ACID TABLET (FP) PO SCH (10:11)
[2017-11-24] MEDS: NICOTINE 14 MG/24 HOURS TOPICAL PATCH TD SCH (10:12)
--- NOTE | 2017-11-24 16:41 | PN ---
[facility] Progress Note Note: PATIENT STATES ZANTAC HELPS WITH INDIGESTION, WILL ORDER ZANTAC 150MG DAILY. CONTINUE TO MONITOR CLINICALLY.
[2017-11-24] MEDS: RANITIDINE HCL 150 MG TABLET (FP) PO SCH (18:12)
[2017-11-24] MEDS: THIAMINE HCL 100 MG TABLET (FP) PO SCH (21:13)
[2017-11-25] MEDS ORDERED: METHADONE HCL 40 MG DISPERSABLE TABLET ONE (05:34)
[2017-11-25] MEDS ORDERED: METHADONE HCL 10 MG TABLET ONE (05:34)
[2017-11-25] MEDS: METHADONE 80 MG, METHADONE 10 MG PO SCH (06:25)
[2017-11-25] MEDS: hydrOXYzine PAMOATE 50 MG CAPSULE (FP) PO PRN (06:35)
[2017-11-25] MEDS: RANITIDINE HCL 150 MG TABLET (FP) PO SCH (09:51)
[2017-11-25] MEDS: PRENATAL VITAMINS W/ FOLIC ACID TABLET (FP) PO SCH (09:51)
[2017-11-25] MEDS: NICOTINE 14 MG/24 HOURS TOPICAL PATCH TD SCH (09:52)
[2017-11-25] MEDS: THIAMINE HCL 100 MG TABLET (FP) PO SCH (21:02)
[2017-11-25] MEDS: MAG HYDROX/AL HYDROX/SIMETH 30 ML UNIT-DOSE CUP PO PRN (21:03)
[2017-11-26] MEDS ORDERED: METHADONE HCL 10 MG TABLET ONE (05:46)
[2017-11-26] MEDS ORDERED: METHADONE HCL 40 MG DISPERSABLE TABLET ONE (05:46)
[2017-11-26] MEDS: METHADONE 80 MG, METHADONE 10 MG PO SCH (06:25)
[2017-11-26] MEDS: RANITIDINE HCL 150 MG TABLET (FP) PO SCH (10:01)
[2017-11-26] MEDS: PRENATAL VITAMINS W/ FOLIC ACID TABLET (FP) PO SCH (10:01)
[2017-11-26] MEDS: NICOTINE 14 MG/24 HOURS TOPICAL PATCH TD SCH (10:02)
[2017-11-26] MEDS: MELATONIN 5 MG TABLETS PO PRN (21:11)
[2017-11-26] MEDS: THIAMINE HCL 100 MG TABLET (FP) PO SCH (21:11)
[2017-11-27] MEDS ORDERED: METHADONE HCL 10 MG TABLET ONE (04:26)
[2017-11-27] MEDS ORDERED: METHADONE HCL 40 MG DISPERSABLE TABLET ONE (04:27)
[2017-11-27] MEDS: METHADONE 80 MG, METHADONE 10 MG PO SCH (06:13)
[2017-11-27] MEDS: ACETAMINOPHEN 325 MG TABLET (FP) PO PRN (06:15)
[2017-11-27] MEDS: PRENATAL VITAMINS W/ FOLIC ACID TABLET (FP) PO SCH (09:37)
[2017-11-27] MEDS: NICOTINE 14 MG/24 HOURS TOPICAL PATCH TD SCH (09:38)
[2017-11-27] MEDS: RANITIDINE HCL 150 MG TABLET (FP) PO SCH (09:38)
[2017-11-27] MEDS: hydrOXYzine PAMOATE 50 MG CAPSULE (FP) PO PRN (09:39)
--- NOTE | 2017-11-27 13:50 | PN ---
[facility] Progress Note Note: Patient c/o of redness and swelling of both legs x 5 days. Patietn denies paresthesia , recent injury, CP, SOB. Vital Signs Temperature 98.3 F 11/27/17 06:41 Pulse Rate 74 11/27/17 06:41 Respiratory Rate 18 11/27/17 06:41 Blood Pressure 105/61 11/27/17 06:41 O2 Sat by Pulse Oximetry (%) Laboratory Last Values HIV 1&2 Antibody Screen Negative 11/22/17 06:00 HIV P24 Antigen Negative 11/22/17 06:00 A/P Patient AOx3 no distress No adventitious breath sounds No JVD pulses present through out + pain on both ankles + edema, +2 with mild induration on both lower legs and ankles, + erythema and warmth to both legs - cullulitis b/l lower extremities Plan: Keflex 500 mg q6h x 5 days top Bacitracin QD increase fluids elevate lower extremities continue to monitor
[2017-11-27] MEDS: CEPHALEXIN MONOHYDRATE 500 MG CAPSULE (UD) PO SCH ×2 (18:03→23:59)
[2017-11-27] MEDS: BACITRACIN 0.9 GM PACKET TP SCH (18:04)
[2017-11-27] MEDS: THIAMINE HCL 100 MG TABLET (FP) PO SCH (21:06)
[2017-11-27] MEDS: MELATONIN 5 MG TABLETS PO PRN (21:06)
[2017-11-28] MEDS ORDERED: METHADONE HCL 40 MG DISPERSABLE TABLET ONE (05:15)
[2017-11-28] MEDS ORDERED: METHADONE HCL 10 MG TABLET ONE (05:15)
[2017-11-28] MEDS: METHADONE 80 MG, METHADONE 10 MG PO SCH (06:07)
[2017-11-28] MEDS: CEPHALEXIN MONOHYDRATE 500 MG CAPSULE (UD) PO SCH ×4 (06:07→23:04)
[2017-11-28] MEDS: PRENATAL VITAMINS W/ FOLIC ACID TABLET (FP) PO SCH (09:51)
[2017-11-28] MEDS: BACITRACIN 0.9 GM PACKET TP SCH (09:51)
[2017-11-28] MEDS: RANITIDINE HCL 150 MG TABLET (FP) PO SCH (09:51)
[2017-11-28] MEDS: NICOTINE 14 MG/24 HOURS TOPICAL PATCH TD SCH (09:51)
[2017-11-28] MEDS: hydrOXYzine PAMOATE 50 MG CAPSULE (FP) PO PRN (09:53)
--- NOTE | 2017-11-28 13:36 | PN ---
[facility] Progress Note Note: PATIENT STARTED TREATMENT FOR CELLULITIS OF BLE. PATIENT DENIES PAIN TO LEGS. STATES HIS LEGS ARE SWOLLEN WHICH HAS NEVER HAPPENDED BEFORE. Laboratory Tests 11/22/17 06:00 HIV 1&2 Antibody Screen Negative HIV P24 Antigen Negative Vital Signs Temperature 98.2 F 11/28/17 06:19 Pulse Rate 70 11/28/17 06:19 Respiratory Rate 18 11/28/17 06:19 Blood Pressure 122/64 11/28/17 06:19 O2 Sat by Pulse Oximetry (%) PE: SKIN: WARM AND DRY GENERAL: ALERT AND ORIENTED X 3. IN NAD EXT: BLE WITH +1 EDEMA, REDNESS TO LOWER LEG AND ANKLE AREA. NONTENDER. NO CALF SWELLING. A/P: CELLULITIS CONTINUE CURRENT TX AND CONTINUE TO MONITOR CLINICALLY LEG ELEVATION
[2017-11-28] MEDS: THIAMINE HCL 100 MG TABLET (FP) PO SCH (21:13)
[2017-11-28] MEDS: MELATONIN 5 MG TABLETS PO PRN (21:14)
[2017-11-29] MEDS ORDERED: METHADONE HCL 10 MG TABLET ONE (03:45)
[2017-11-29] MEDS ORDERED: METHADONE HCL 40 MG DISPERSABLE TABLET ONE (03:46)
[2017-11-29] MEDS: CEPHALEXIN MONOHYDRATE 500 MG CAPSULE (UD) PO SCH ×4 (06:27→23:56)
[2017-11-29] MEDS: METHADONE 80 MG, METHADONE 10 MG PO SCH (06:27)
[2017-11-29] MEDS: hydrOXYzine PAMOATE 50 MG CAPSULE (FP) PO PRN (06:28)
[2017-11-29] MEDS: RANITIDINE HCL 150 MG TABLET (FP) PO SCH (09:57)
[2017-11-29] MEDS: PRENATAL VITAMINS W/ FOLIC ACID TABLET (FP) PO SCH (09:57)
[2017-11-29] MEDS: BACITRACIN 0.9 GM PACKET TP SCH (09:57)
[2017-11-29] MEDS: NICOTINE 14 MG/24 HOURS TOPICAL PATCH TD SCH (09:58)
[2017-11-29] MEDS: NICOTINE POLACRILEX 2 MG GUM BUC PRN ×2 (09:59→12:57)
[2017-11-29] MEDS: THIAMINE HCL 100 MG TABLET (FP) PO SCH (21:17)
[2017-11-29] MEDS: MELATONIN 5 MG TABLETS PO PRN (21:18)
[2017-11-30] MEDS ORDERED: METHADONE HCL 40 MG DISPERSABLE TABLET ONE (02:38)
[2017-11-30] MEDS ORDERED: METHADONE HCL 10 MG TABLET ONE (02:38)
[2017-11-30] MEDS: CEPHALEXIN MONOHYDRATE 500 MG CAPSULE (UD) PO SCH ×4 (06:13→23:26)
[2017-11-30] MEDS: METHADONE 80 MG, METHADONE 10 MG PO SCH (06:14)
[2017-11-30] MEDS: hydrOXYzine PAMOATE 50 MG CAPSULE (FP) PO PRN (06:15)
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
[2017-11-30] MEDS: NICOTINE 14 MG/24 HOURS TOPICAL PATCH TD SCH (09:42)
[2017-11-30] MEDS: PRENATAL VITAMINS W/ FOLIC ACID TABLET (FP) PO SCH (09:42)
[2017-11-30] MEDS: BACITRACIN 0.9 GM PACKET TP SCH (09:42)
[2017-11-30] MEDS: RANITIDINE HCL 150 MG TABLET (FP) PO SCH (09:42)
[2017-11-30] MEDS: THIAMINE HCL 100 MG TABLET (FP) PO SCH (21:09)
[2017-12-01] MEDS ORDERED: METHADONE HCL 10 MG TABLET ONE (04:03)
[2017-12-01] MEDS ORDERED: METHADONE HCL 40 MG DISPERSABLE TABLET ONE (04:04)
[2017-12-01] MEDS: METHADONE 80 MG, METHADONE 10 MG PO SCH (06:17)
[2017-12-01] MEDS: CEPHALEXIN MONOHYDRATE 500 MG CAPSULE (UD) PO SCH ×3 (06:17→17:40)
[2017-12-01] MEDS: hydrOXYzine PAMOATE 50 MG CAPSULE (FP) PO PRN (06:48)
[2017-12-01] MEDS: PRENATAL VITAMINS W/ FOLIC ACID TABLET (FP) PO SCH (10:10)
[2017-12-01] MEDS: RANITIDINE HCL 150 MG TABLET (FP) PO SCH (10:10)
[2017-12-01] MEDS: BACITRACIN 0.9 GM PACKET TP SCH (10:10)
[2017-12-01] MEDS: NICOTINE 14 MG/24 HOURS TOPICAL PATCH TD SCH (10:10)
[2017-12-01] MEDS: ACETAMINOPHEN 325 MG TABLET (FP) PO PRN (10:13)
[2017-12-01] MEDS: MELATONIN 5 MG TABLETS PO PRN (21:06)
[2017-12-01] MEDS: THIAMINE HCL 100 MG TABLET (FP) PO SCH (21:06)
[2017-12-02] MEDS ORDERED: METHADONE HCL 40 MG DISPERSABLE TABLET ONE (04:21)
[2017-12-02] MEDS ORDERED: METHADONE HCL 10 MG TABLET ONE (04:21)
[2017-12-02] MEDS: METHADONE 80 MG, METHADONE 10 MG PO SCH (06:18)
[2017-12-02] MEDS: RANITIDINE HCL 150 MG TABLET (FP) PO SCH (09:51)
[2017-12-02] MEDS: BACITRACIN 0.9 GM PACKET TP SCH (09:51)
[2017-12-02] MEDS: PRENATAL VITAMINS W/ FOLIC ACID TABLET (FP) PO SCH (09:51)
[2017-12-02] MEDS: NICOTINE 14 MG/24 HOURS TOPICAL PATCH TD SCH (09:51)
[2017-12-02] MEDS: hydrOXYzine PAMOATE 50 MG CAPSULE (FP) PO PRN (09:52)
[2017-12-02] MEDS: MELATONIN 5 MG TABLETS PO PRN (21:10)
[2017-12-02] MEDS: THIAMINE HCL 100 MG TABLET (FP) PO SCH (21:10)
[2017-12-03] MEDS ORDERED: METHADONE HCL 40 MG DISPERSABLE TABLET ONE (04:30)
[2017-12-03] MEDS ORDERED: METHADONE HCL 10 MG TABLET ONE (04:30)
[2017-12-03] MEDS: METHADONE 80 MG, METHADONE 10 MG PO SCH (06:26)
[2017-12-03] MEDS: hydrOXYzine PAMOATE 50 MG CAPSULE (FP) PO PRN ×2 (06:29→21:08)
[2017-12-03] MEDS: RANITIDINE HCL 150 MG TABLET (FP) PO SCH (09:53)
[2017-12-03] MEDS: BACITRACIN 0.9 GM PACKET TP SCH (09:53)
[2017-12-03] MEDS: NICOTINE 14 MG/24 HOURS TOPICAL PATCH TD SCH (09:53)
[2017-12-03] MEDS: PRENATAL VITAMINS W/ FOLIC ACID TABLET (FP) PO SCH (09:53)
[2017-12-03] MEDS: THIAMINE HCL 100 MG TABLET (FP) PO SCH (21:08)
[2017-12-03] MEDS: MELATONIN 5 MG TABLETS PO PRN (21:08)
[2017-12-04] MEDS ORDERED: METHADONE HCL 10 MG TABLET ONE (06:01)
[2017-12-04] MEDS ORDERED: METHADONE HCL 40 MG DISPERSABLE TABLET ONE (06:02)
[2017-12-04] MEDS: METHADONE 80 MG, METHADONE 10 MG PO SCH (06:35)
[2017-12-04] MEDS: BACITRACIN 0.9 GM PACKET TP SCH (09:57)
[2017-12-04] MEDS: RANITIDINE HCL 150 MG TABLET (FP) PO SCH (09:57)
[2017-12-04] MEDS: PRENATAL VITAMINS W/ FOLIC ACID TABLET (FP) PO SCH (09:57)
[2017-12-04] MEDS: NICOTINE 14 MG/24 HOURS TOPICAL PATCH TD SCH (09:58)
[2017-12-04] MEDS: THIAMINE HCL 100 MG TABLET (FP) PO SCH (21:12)
[2017-12-04] MEDS: hydrOXYzine PAMOATE 50 MG CAPSULE (FP) PO PRN (21:13)
[2017-12-04] MEDS: MELATONIN 5 MG TABLETS PO PRN (21:13)
[2017-12-05] MEDS ORDERED: METHADONE HCL 40 MG DISPERSABLE TABLET ONE (03:17)
[2017-12-05] MEDS ORDERED: METHADONE HCL 10 MG TABLET ONE (03:17)
[2017-12-05] MEDS: METHADONE 80 MG, METHADONE 10 MG PO SCH (06:13)
[2017-12-05] MEDS: hydrOXYzine PAMOATE 50 MG CAPSULE (FP) PO PRN ×2 (06:14→10:01)
[2017-12-05] MEDS: BACITRACIN 0.9 GM PACKET TP SCH (10:00)
[2017-12-05] MEDS: RANITIDINE HCL 150 MG TABLET (FP) PO SCH (10:00)
[2017-12-05] MEDS: NICOTINE 14 MG/24 HOURS TOPICAL PATCH TD SCH (10:00)
[2017-12-05] MEDS: PRENATAL VITAMINS W/ FOLIC ACID TABLET (FP) PO SCH (10:00)
[2017-12-05] MEDS: THIAMINE HCL 100 MG TABLET (FP) PO SCH (21:13)
[2017-12-05] MEDS: MELATONIN 5 MG TABLETS PO PRN (21:14)
[2017-12-06] MEDS ORDERED: METHADONE HCL 40 MG DISPERSABLE TABLET ONE (04:24)
[2017-12-06] MEDS ORDERED: METHADONE HCL 10 MG TABLET ONE (04:24)
[2017-12-06] MEDS: METHADONE 80 MG, METHADONE 10 MG PO SCH (06:19)
[2017-12-06] MEDS: hydrOXYzine PAMOATE 50 MG CAPSULE (FP) PO PRN ×3 (06:21→21:09)
[2017-12-06] MEDS: PRENATAL VITAMINS W/ FOLIC ACID TABLET (FP) PO SCH (09:57)
[2017-12-06] MEDS: RANITIDINE HCL 150 MG TABLET (FP) PO SCH (09:57)
[2017-12-06] MEDS: NICOTINE 14 MG/24 HOURS TOPICAL PATCH TD SCH (09:58)
[2017-12-06] MEDS: BACITRACIN 0.9 GM PACKET TP SCH (10:39)
[2017-12-06] MEDS: MELATONIN 5 MG TABLETS PO PRN (21:09)
[2017-12-06] MEDS: THIAMINE HCL 100 MG TABLET (FP) PO SCH (21:09)
[2017-12-07] MEDS ORDERED: METHADONE HCL 10 MG TABLET ONE (03:22)
[2017-12-07] MEDS ORDERED: METHADONE HCL 40 MG DISPERSABLE TABLET ONE (03:23)
[2017-12-07] MEDS: METHADONE 80 MG, METHADONE 10 MG PO SCH (06:05)
[2017-12-07] MEDS: hydrOXYzine PAMOATE 50 MG CAPSULE (FP) PO PRN ×2 (06:07→21:08)
[2017-12-07 07:12] VITALS: BP 116/62; PULSE 69; TEMP 98.8
[2017-12-07] MEDS: RANITIDINE HCL 150 MG TABLET (FP) PO SCH (09:57)
[2017-12-07] MEDS: BACITRACIN 0.9 GM PACKET TP SCH (09:57)
[2017-12-07] MEDS: NICOTINE 14 MG/24 HOURS TOPICAL PATCH TD SCH (09:57)
[2017-12-07] MEDS: PRENATAL VITAMINS W/ FOLIC ACID TABLET (FP) PO SCH (09:57)
--- NOTE | 2017-12-07 16:22 | PN ---
Psychiatric Progress Note Vital Signs: Vital Signs Period Temp Pulse Resp BP Sys/Diaz Pulse Ox Last 24 Hr 98.8 F 69 18-18 116/62 Date of Session: 12/07/17 Chief Complaint:: Discharge Note HPI: Patient addressing Alcohol Dependence comorbid with Opioid Dependence on Agonist Therapy, Nicotine Dependence, Mood Disorder, Substance-Induced Mood Disorder and Substance-Induced Sleep Disorder ROS: GERD, Alcohol withdrawal seizure Current Medications: Active Medications Generic Name Dose Route Start Last Admin Trade Name Freq PRN Reason Stop Dose Admin Acetaminophen 650 mg 11/21/17 13:29 12/01/17 10:13 Tylenol - PO 650 mg Q4H PRN Administration FEVER Al Hydroxide/Mg Hydroxide 30 ml 11/21/17 13:29 11/25/17 21:03 Mylanta Oral Suspension - PO 30 ml Q6H PRN Administration DYSPEPSIA Bacitracin 0.9 gm 11/27/17 18:00 12/07/17 09:57 Bacitracin - TP 0.9 gm DAILY EDMUND Administration Bupropion HCl 150 mg 11/22/17 10:00 12/07/17 09:57 Wellbutrin Xl - PO 150 mg DAILY EDMUND Administration Eucalyptus/Menthol/Phenol/Sorbitol 1 each 11/21/17 13:29 Cepastat Lozenge - MM Q4H PRN SORE THROAT Guaifenesin 10 ml 11/21/17 13:29 Robitussin Dm - PO Q6H PRN COUGH Hydroxyzine Pamoate 50 mg 11/21/17 13:29 12/07/17 06:07 Vistaril - PO 50 mg Q4H PRN Administration AGITATION Ibuprofen 400 mg 11/21/17 13:29 Motrin - PO Q6H PRN Pain Level 4-6 Loperamide HCl 4 mg 11/21/17 13:29 Imodium - PO Q6H PRN DIARRHEA Magnesium Citrate 300 ml 11/21/17 13:29 Citroma - PO Q48H PRN CONSTIPATION Magnesium Hydroxide 30 ml 11/21/17 13:29 Milk Of Magnesia - PO DAILY PRN CONSTIPATION Melatonin 5 mg 11/21/17 22:00 12/06/17 21:09 Melatonin PO 5 mg HS PRN Administration INSOMNIA Methadone HCl 80 mg/ Methadone 90 mg 12/04/17 06:00 12/07/17 06:05 HCl 10 mg PO 12/11/17 05:59 90 mg DAILY@0600 EDMUND Administration Nicotine 14 mg 11/21/17 13:45 12/07/17 09:57 Nicoderm Patch - TD 14 mg DAILY EDMUND Administration Nicotine Polacrilex 2 mg 11/21/17 13:29 11/29/17 12:57 Nicorette Gum - BUC 2 mg Q2H PRN Administration NICOTINE REPLACEMENT RX Multivit/Folic Acid/Iron 1 tab 11/22/17 10:00 12/07/17 09:57 Vitamins (Sjr) - PO 1 tab DAILY EDMUND Administration Pseudoephedrine/Triprolidine 1 combo 11/21/17 13:29 Actifed - PO TID PRN NASAL CONGESTION Ranitidine HCl 150 mg 11/24/17 17:00 12/07/17 09:57 Zantac - PO 150 mg DAILY EDMUND Administration Thiamine HCl 100 mg 11/21/17 22:00 12/06/17 21:09 Vitamin B1 - PO 100 mg HS EDMUND Administration Current Side Effect: No Lab tests ordered: Yes Lab tests reviewed: Yes Provider note:: Patient will complete this program on 12/08/17. He has met his treament goals and will continue to address his issues in long term care administrator residential treatment at [facility]. 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 He responded well to Well butrin XL 150 mg po daily. Script that medication is electronically transmitted to [facility] at [address] [place] [address]. He is stable for discharge on 12/08/17 Total face to face time:: 35 Psychiatric Treatment Plan - Problem List (1) Alcohol dependence Current Visit: Yes (2) Opioid dependence on agonist therapy Current Visit: Yes (3) Nicotine dependence Current Visit: Yes Qualifiers: Nicotine product type: cigarettes Substance use status: in withdrawal Qualified Code(s): F17.213 - Nicotine dependence, cigarettes, with withdrawal (4) Mood disorder Current Visit: Yes (5) Substance induced mood disorder Current Visit: Yes (6) Substance-induced sleep disorder Current Visit: Yes (7) GERD (gastroesophageal reflux disease) Current Visit: Yes Qualifiers: Esophagitis presence: esophagitis presence not specified Qualified Code(s) : K21.9 - Gastro-esophageal reflux disease without esophagitis Initial treatment plan: Patient will be discharged tomorrow and referred to [facility] for long term care administrator residential treatment
[2017-12-07] MEDS: THIAMINE HCL 100 MG TABLET (FP) PO SCH (21:08)
[2017-12-07] MEDS: MELATONIN 5 MG TABLETS PO PRN (21:09)
[2017-12-08] MEDS: METHADONE 80 MG, METHADONE 10 MG PO SCH (07:09)
== END 2017-12-08 06:56 | disposition home or self-care (01) | DRG 772 ==
LOC: YASAS 12:58 → Y5N 12:59
PROVIDERS: ADMIT Psychiatry & Neurology Psychiatry; ATTEND Psychiatry & Neurology Psychiatry
PROC: HZ42ZZZ Group Counseling for Substance Abuse Treatment, Cognitive-Behavioral (ICD-10-PCS; principal; 2017-11-21)
DX: F10.20 Alcohol dependence, uncomplicated (principal); F11.20 Opioid dependence, uncomplicated; F17.213 Nicotine dependence, cigarettes, with withdrawal; F19.24 Other psychoactive substance dependence with psychoactive substance-induced mood disorder; F19.282 Other psychoactive substance dependence with psychoactive substance-induced sleep disorder; F33.9 Major depressive disorder, recurrent, unspecified; K21.9 Gastro-esophageal reflux disease without esophagitis; G47.00 Insomnia, unspecified; L03.115 Cellulitis of right lower limb; L03.116 Cellulitis of left lower limb; L74.0 Miliaria rubra; R79.89 Other specified abnormal findings of blood chemistry; Z59.0 Homelessness
CPT/HCPCS: 36415; 87389